=== PATIENT | male | born 1985 | race Caucasian/White ===

== ENCOUNTER 2018-04-16 09:29 | Day surgery (SDC) | payer OTHER, MEDICAID, SELFPAY ==
[2018-04-16] VITALS (9 sets, daily range): BP systolic 104–148; BP diastolic 54–88; PULSE 62–78; RESP 14–16; TEMP 35.7–36.5; O2SAT 95–98; BMI 29.0
--- NOTE | 2018-04-16 | PATH_ITS ---
[facility] Accession Number: [id number] . 01 Material submitted: . PART A: LEFT LATERAL PART B: RIGHT LATERAL PART C: ANTERIOR MIDLINE HEMORRHOID TISSUE PART D: RIGHT POSTERIOR LATERAL . 01 Clinical history: . B: SPECIAL ATTENTION TO JUNCTION BETWEEN MELISSA-ANAL SKIN AND ANUS . 02 Diagnosis: A. 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 Associated internal and external hemorrhoids. . B. Specimen Designated Right Lateral: Anal and rectal tissue with low-grade anal intraepithelial neoplasia (AIN 1) at the anorectal junction. Associated internal and external hemorrhoids, thrombosed. Inked margins negative for significant atypia. . C. Specimen Designated Anterior Midline Hemorrhoidal Tissue: Anal and rectal tissue with internal and external hemorrhoids, negative for atypia. . D. Specimen Designated Right Posterior Lateral: Anorectal tissue with low-grade anal intraepithelial neoplasia (AIN 1) with associated internal and external hemorrhoids. AIN atypia focally extends to some edges of the tissue fragments. MR/04/20/2018 . 02 Electronically signed: . Fabian Chavez MD, Pathologist NPI- [id number] . 01 Gross description: . A. The specimen is received in a container of formalin, labeled with the patient's name, designated left lateral, short stitch pigmented lesion, long stitch verrucous lesion. The specimen consists of a piece of sutherland-rdz to pink-rdz anal rectal tissue measuring 3 x 2 x 1.2 cm. A short stitch designates the pigmented lesion. This involves the anal epithelial tissue. This area appears to extend possibly to the surgical margin. The anal tissue adjacent to this area has a dark purple appearance suggestive of congestion. The long suture has a 0.8 x 0.5 x 0.1 cm, slightly raised, pale white, granular lesion. This area is near the dentate line adjacent to the anorectal mucosa. The margins are painted with blue ink. The verruca lesion is approximately 1.3 cm away from the pigmented lesion. Underlying blood vessels are slightly dilated and filled with bloody fluid. The specimen is entirely submitted as: Cassette A1 - pigmented lesion; cassettes A2-A4 - verruca lesion; cassette A5, A6, A7 - remainder of anorectal tissue. B. The specimen is received in a container of formalin, labeled with the patient's name, designated right lateral, special attention to junction between perianal skin and anus. The specimen consists of two pieces of tissue. The first is a 3.1 x 2 x 0.6 cm, sutherland-rdz strip of anorectal tissue at the junction of the dentate line. The anal tissue has a slightly granular appearance. The surrounding rectal mucosa is smooth, rdz. There is no orientation of the specimen. The margins are painted with black ink. The area of granulation at the dentate line measures 1 cm by approximately 0.3 cm and is slightly raised. The second piece of tissue consists of a 1.3 x 0.5 x 0.3 cm, sutherland-rdz piece of anal tissue. Near one end, there is a 0.4 x 0.4 cm by less than 0.1 cm, raised, pale white lesion. The margins are painted with blue ink. The specimen is serially sectioned through the short axis and entirely submitted with the remaining tissue as cassettes B1-B4 - all of larger piece; cassette B5 - all of smaller piece. C. The specimen is received in a container of formalin, labeled with the patient's name, designated anterior midline hemorrhoid. The specimen consists of a non-oriented piece of anorectal tissue measuring 2 x 1.6 x 0.7 cm. The anal tissue is focally fragmented and has a slightly raised, slightly granular appearance. What appear to be the margins are painted with black ink. The underlying blood vessels are slightly dilated. The specimen is entirely submitted in cassettes C1 and C2. D. The specimen is received in a container of formalin, labeled with the patient's name, designated right posterior lateral. The specimen consists of two pieces of tissue. The first is a 0.5 x 0.4 x 0.2 cm, pink-rdz, polypoid piece of rectal mucosa. The second is a 0.8 x 0.7 x 0.3 cm, sutherland-rdz, strip of anorectal tissue. No epithelial mucosa lesions are grossly noted. The larger piece is trisected. The smaller piece is bisected. Entirely submitted in cassette D1. ([id number]) /FRR . 02 Pathologist provided ICD-10: K62.82 . 02 CPT . 544180, 556897, 510235, 892000 Performed at: 01 [facility] [address] [place] [address], [place], [place] [id number] MD Noe Artis MD Phone: [phone] Performed at: 02 [facility] [address] [place], [place] [id number] MD Miguel Angel Dove MD Phone: [phone]
[2018-04-16] MEDS: LACTATED RINGERS 1,000 ML 200 ML IV (10:11)
--- NOTE | 2018-04-16 11:54 | PM.PREOP ---
Pre-operative Note Interval Note Pre-op Check: History & Physical Reviewed by Physician and Exam Performed H&P completed within 30 days and has changed as indicated here:: Little more irritation. Mineral oil has caused him to have loose stool
[2018-04-16] MEDS: LIDOCAINE 1% W/EPI INJ 1 ML SUBCUT (12:52)
[2018-04-16] MEDS: DIBUCAINE 1% OINT 28 GM 1 APPLIC TOP (13:01)
[2018-04-16] MEDS: HYDROMORPHONE 0.5 MG INJ IV ×4 (13:30→13:56)
--- NOTE | 2018-04-16 13:56 | PM.OP.1 ---
Operative Date/Time/Diagnoses - Date of procedure: 04/16/18 Time of procedure: 13:15 Pre-op diagnosis: Internal external hemorrhoids with bleeding and prolapse Post-op diagnosis: same (Verrucus like lesions on some of the hemorrhoids) Procedure & Clinicians Procedure: Four column hemorrhoidectomy Same procedure as scheduled: Yes Indications: Symptomatic hemorrhoids with prolapse and bleeding (grade 3) Surgeon: Nasim Sierra Click Yes if Unassisted: Yes Anesthesia Type: General Operative Notes Findings: Two large into smaller columns of hemorrhoids. There were verrucous lesions at the edge of the anoderm. SCIP protocol was followed Closure Type: primary Specimen(s): other Estimated Blood Loss (mL): 150 Procedure in detail: Patient was placed prone on the operating room table and taped apart. He was prepped and draped in the usual fashion. He had large visible hemorrhoids. Digital exam was unremarkable. [place] anoscope was inserted and circumferential exam performed. Patient was noted to have a rectus lesions at the edge of his anoderm on some hemorrhoids. The 2 largest columns were left and right lateral. Two smaller columns were anterior midline and right posterior lateral. All these were handled in similar fashion. The suture was placed at the head of the column of the hemorrhoid of 2 0 chromic. The anoderm was incised and the hemorrhoid was lifted off the underlying sphincter. The hemorrhoid was excised. The defect created was closed with a running 2 0 chromic. All 4 hemorrhoids were handled the same. Only the right posterior lateral had no extensive external component. All were submitted. The left lateral hemorrhoid had some dark pigmented lesions located on the skin of the anoderm and these were marked for the pathologist at completion hemostasis was complete. Dibucaine on Gel-Foam was inserted into the anal verge. Dressing was applied and the patient was taken to the recovery area in good condition. Complications: none Condition: stable Disposition: PACU Plan for aftercare: Follow-up in the office.
[2018-04-16] MEDS: HYDROMORPHONE 2 MG TABLET PO (14:00)
== END 2018-04-16 14:40 | disposition home or self-care (01) ==
PROVIDERS: Visit Provider Specialist
PROC: (CPT 46260; principal; 2018-04-16 11:15)
DX: K62.82 Dysplasia of anus (principal); K64.8 Other hemorrhoids; F17.210 Nicotine dependence, cigarettes, uncomplicated
CPT/HCPCS: 46260; 88305; J0330; J1100; J1170; J2250; J2405; J2704; J3010

== ENCOUNTER 2018-04-30 07:53 | Emergency (ER) | payer OTHER, MEDICAID, SELFPAY ==
[2018-04-30 08:09] VITALS: BP 137/91; PULSE 75; RESP 18; TEMP 36.8; O2SAT 100; BMI 29.2
[2018-04-30 08:14] VITALS: BP 137/91; PULSE 76; RESP 18; TEMP 36.8; O2SAT 100
--- NOTE | 2018-04-30 08:39 | ED_ITS ---
HPI - Abdominal Pain General Chief Complaint: Abdominal Pain Stated Complaint: POST OP,DIARRHEA/ABDOMINAL PAIN Time Seen by Provider: 04/30/18 08:21 Source: patient and RN notes reviewed Mode of arrival: ambulatory Limitations: no limitations History of Present Illness HPI narrative: Patient is a 33-year-old male presents with diarrhea and abdominal pain. He has had multiple episodes of diarrhea loose watery nonbloody stools over the last 3 days. The some nausea but no vomiting. He has been drinking Gatorade and water. However just not feeling any better. He says they are doing something with a tap water and he may have eaten something bad. No and else knows is sick. MD complaint: abdominal pain Onset (ago): day(s) (3) Location: LLQ Severity: mild Quality: cramping and aching Related Data Home Medications Medication Instructions Recorded Confirmed acetaminophen [Tylenol Extra 1,000 mg PO Q4HP PRN #0 09/03/17 04/30/18 Strength] cholecalciferol (vitamin D3) 4,000 units PO QDAY #0 09/03/17 04/30/18 [Vitamin D3] [Compound Cream] 1 dose TOPICAL BID 04/16/18 04/30/18 multivitamin 1 tab PO DAILY 04/16/18 04/30/18 lidocaine 1 applic TOPICAL QID 04/30/18 04/30/18 Previous Rx's Medication Instructions Recorded ondansetron [Zofran ODT] 4 mg PO Q6H PRN #10 tab 04/30/18 Allergies Allergy/AdvReac Type Severity Reaction Status Date / Time fluoxetine Allergy Unknown DOESN'T Verified 04/30/18 08:09 TOLERATE MAKES MORE DEPRESSED haloperidol Allergy Unknown Verified 04/30/18 08:09 montelukast Allergy Unknown Verified 04/30/18 08:09 hydrocodone [HYDROCODONE] AdvReac Unknown Verified 04/30/18 08:09 oxycodone [OXYCODONE] AdvReac Unknown Verified 04/30/18 08:09 Review of Systems Review of Systems All systems reviewed & are unremarkable except as noted in HPI and below Constitutional Denies chills, Denies fever(s), Denies lethargy and Denies weakness Cardiovascular Denies chest pain, Denies irregular heart rhythm, Denies lightheadedness, Denies palpitations, Denies dyspnea, Denies dyspnea on exertion and Denies orthopnea Respiratory Denies cough, Denies dyspnea, Denies dyspnea on exertion and Denies wheezing Gastrointestinal Gastrointestinal: Reports as per HPI Musculoskeletal Denies back pain, Denies muscle weakness, Denies numbness and Denies tingling Integumentary/Breasts Denies pruritus, Denies erythema, Denies rash and Denies wounds Neurologic Denies numbness, Denies tingling and Denies weakness Endocrine Denies palpitations Allergic/Immunologic Denies wheezing [facility] Medical History ADHD (Acute) Chronic pain (Acute) DJD (degenerative joint disease) (Acute) Depression (Acute) Drug induced constipation (Acute) 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) Overweight (Acute) Sleep difficulties (Acute) Surgical History H/O hemorrhoidectomy (Acute) H/O inguinal hernia repair (Acute) History of shoulder surgery (Acute) Hx of tonsillectomy (Acute) Social History household members: significant other and other Smoking Status: Current every day smoker Exam Initial Vital Signs Initial Vital Signs: Vital Signs Temperature 98.3 F 04/30/18 08:09 Pulse Rate 75 04/30/18 08:09 Respiratory Rate 18 04/30/18 08:09 Blood Pressure 137/91 H 04/30/18 08:09 Pulse Oximetry 100 04/30/18 08:09 Const General: cooperative and well developed Nutritional Appearance: well nourished Orientation: alert, awake, oriented x3 and not confused Resp Effort & Inspection: normal respiratory effort, able to speak in complete sentences, no respiratory distress and no use of accessory muscles Auscultation: clear to auscultation bilaterally, no rales, no rhonchi and no wheezes Cardio Rate: regular rate Rhythm: regular rhythm Heart Sounds: no click, no gallops, no murmurs and no rubs Pulses: normal peripheral pulses GI Palpation: soft, No guarding and tender (Mild tenderness left lower quadrant) Skin General: no rashes or lesions noted, No jaundice and No petechiae Neuro General: alert, oriented x3, gait normal and no focal motor deficits Speech: speech normal Course Orders Ordered: Discontinued Medications Sodium Chloride (Normal Saline 0.9%) 1,000 mls @ 1,000 mls/hr IV CONT MARYCRUZ Last Infusion: 04/30/18 09:35 Dose: 0 mls/hr Admin: 04/30/18 08:49 Dose: 1,000 mls/hr Ketorolac Tromethamine (Toradol) 30 mg IV NOW ONE Stop: 04/30/18 08:29 Last Admin: 04/30/18 08:50 Dose: 30 mg Ondansetron HCl (Zofran) 4 mg IV NOW ONE Stop: 04/30/18 08:29 Last Admin: 04/30/18 08:50 Dose: 4 mg Vital Signs - 8 hr 04/30/18 08:09 04/30/18 08:14 Temperature 98.3 F 98.3 F Pulse Rate 75 76 Respiratory Rate 18 18 Blood Pressure 137/91 H Blood Pressure [Right Arm] 137/91 H Pulse Oximetry 100 100 MDM - Abdominal Pain Lab Data Result diagrams: 04/30/18 08:42 04/30/18 08:42 Lab Results 04/30/18 04/30/18 Range/Units 08:42 08:42 WBC 13.3 H (4.5-11.0) X10^3/uL RBC 5.26 (4.5-5.9) X10^6/uL Hgb 15.1 (13.5-17.5) g/dL Hct 45.3 (41-53) % MCV 86.2 (80-100) fL MCH 28.7 (26-34) PG MCHC 33.3 (30-36) % RDW 14.3 (11.6-14.8) % Plt Count 384 (150-400) X10^3/uL Neut % (Auto) 81.1 H (50-75) % Lymph % (Auto) 10.9 L (25-40) % Spencer % (Auto) 7.1 (3-14) % Eos % (Auto) 0.6 L (2-4) % Baso % (Auto) 0.3 (0-2) % Neut # (Auto) 00735 H (7209-0289) /uL Sodium 144 (137-145) mmol/L Potassium 4.1 (3.4-5.1) mmol/L Chloride 105 (98-107) mmol/L Carbon Dioxide 26 (22-32) mmol/L BUN 10 (9-20) mg/dL Creatinine 0.70 (0.66-1.25) mg/dL Estimated GFR > 60.0 (>60) mL/min BUN/Creatinine Ratio 14.3 (6-22) Glucose 112 H (70-100) mg/dL Calcium 9.7 (8.4-10.2) mg/dL Total Bilirubin 0.7 (0.2-1.3) mg/dL AST 39 (17-59) IU/L ALT 47 (21-72) IU/L Alkaline Phosphatase 68 (38-126) U/L Total Protein 7.8 (6.3-8.2) g/dL Albumin 4.7 (3.5-5.0) g/dL Globulin 3.1 (1.7-4.1) g/dL Albumin/Globulin Ratio 1.5 (1.0-2.8) Lipase 227 (23-300) U/L MDM Narrative Medical decision making narrative: Tolerating oral fluid no sign of dehydration. He was an apartment building no one else is sick from after they messed with the main water. This is more likely a viral gastroenteritis. Discussed oral rehydration techniques with him. Discharge Plan Departure Patient Disposition: Home, Self-Care Clinical Impression: Gastroenteritis Discharge Date/Time: 04/30/18 10:58 Interventions: ED Discharge Assessment Last Done: 04/30/18 10:58 Instructions: DI for Viral Gastroenteritis -- Adult Activity Restrictions/Additional Instructions: 1) You have been diagnosed with gastroenteritis 2) What to do: Drink frequent but small amounts of fluids. I recommend Gatorade or a Gatorade-like product, as it has small amounts of sugar and salts that improve fluid retention. 3) Take medications as directed-your prescription has been sent to [facility] in [place] at your request 4) Follow up with your primary care provider in 2-3 days 5) Return to ER if you should have any new or worsening symptoms such as, unable to hold down fluids despite use of anti-nausea medications and the small volume oral rehydration strategy, or any worsening abdominal pain Prescriptions: New ondansetron [Zofran ODT] 4 mg tablet,disintegrating 4 mg PO Q6H PRN (Reason: nausea and vomiting) Qty: 10 RF: 0 No Action cholecalciferol (vitamin D3) [Vitamin D3] 1,000 unit Tablet 4,000 units PO QDAY Qty: 0 RF: 0 acetaminophen [Tylenol Extra Strength] 500 MG tablet 1,000 mg PO Q4HP PRN (Reason: Pain, Severe) Qty: 0 RF: 0 lidocaine 5 % ointment 1 applic Topical QID RF: 0 [Compound Cream] 1 dose Topical BID RF: 0 multivitamin Tablet 1 tab PO DAILY RF: 0 Referrals: [Primary Care Provider] -
[2018-04-30 08:48] LABS: Add Manual Diff / Slide Review NO; Basophils Percent Auto 0.3 % (0-2); Eosinophils Percent Auto 0.6 % (2-4); Hematocrit 45.3 % (41-53); Hemoglobin 15.1 g/dL (13.5-17.5); Lymphocytes Percent Auto 10.9 % (25-40); Mean Corpuscular HGB Conc 33.3 % (30-36); Mean Corpuscular Hemoglobin 28.7 PG (26-34); Mean Corpuscular Volume 86.2 fL (80-100); Monocytes Percent Auto 7.1 % (3-14); Neutrophils Absolute Auto 10800 /uL (3000-5900); Neutrophils Percent Auto 81.1 % (50-75); Platelet Count 384 X10^3/uL (150-400); Red Blood Cell Count 5.26 X10^6/uL (4.5-5.9); Red Cell Distribution Width 14.3 % (11.6-14.8); White Blood Cell Count 13.3 X10^3/uL (4.5-11.0)
[2018-04-30] MEDS: SODIUM CHLORIDE 0.9% 1,000 ML 1000 ML IV (08:49)
[2018-04-30] MEDS: KETOROLAC 60 MG/2 ML VIAL 30 MG IV (08:50)
[2018-04-30] MEDS: ONDANSETRON 4 MG/2 ML INJ IV (08:50)
[2018-04-30 08:59] LABS: Alanine Aminotransferase 47 IU/L (21-72); Albumin 4.7 g/dL (3.5-5.0); Albumin Globulin Ratio 1.5 (1.0-2.8); Alkaline Phosphatase 68 U/L (38-126); Aspartate Aminotransferase 39 IU/L (17-59); BUN Creatinine Ratio 14.3 (6-22); Bilirubin Total 0.7 mg/dL (0.2-1.3); Blood Urea Nitrogen 10 mg/dL (9-20); Calcium 9.7 mg/dL (8.4-10.2); Carbon Dioxide 26 mmol/L (22-32); Chloride 105 mmol/L (98-107); Estimated Glomerular Filt Rate > 60.0 mL/min (>60); Globulin 3.1 g/dL (1.7-4.1); Glucose 112 mg/dL (70-100); HEMOLYSIS < 15 (0-50); Lipase 227 U/L (23-300); Potassium 4.1 mmol/L (3.4-5.1); Sodium 144 mmol/L (137-145); Total Protein 7.8 g/dL (6.3-8.2)
[2018-04-30 09:40] VITALS: BP 147/86; PULSE 62; RESP 12; O2SAT 97
[2018-04-30 10:33] VITALS: BP 144/77; PULSE 63; RESP 17; O2SAT 99
== END 2018-04-30 10:58 | disposition home or self-care (01) ==
PROVIDERS: Emergency Provider Emergency Medicine
DX: K52.9 Noninfective gastroenteritis and colitis, unspecified (principal)
CPT/HCPCS: 36591; 80053; 83690; 85025; 96361; 96374; 96375; 99283; 99284; J1885; J2405

== ENCOUNTER → 2018-05-05 13:07 | Outpatient (CLI) | payer SELFPAY | PROVIDERS: Visit Provider Specialist ==

== ENCOUNTER 2023-11-04 07:54 | Emergency (ER) | payer OTHER, MEDICAID, SELFPAY ==
[2023-11-04 08:06] VITALS: BP 164/110; PULSE 98; RESP 18; TEMP 36.8; O2SAT 99; BMI 32.8
--- NOTE | 2023-11-04 08:26 | DI.RAD.S_ITS ---
PROCEDURE: XR LUMBAR SPINE 2-3V INDICATIONS: Fall with midline back pain TECHNIQUE: 2 views of the lumbar spine were acquired. COMPARISON: [facility], CR, L-SPINE 2-3 VIEWS, 02/09/2015, 14:10. [facility], CR, L-SPINE 2-3 VIEWS, 08/29/2014, 14:28. FINDINGS: Bones: 5 [id number] vertebrae are present. There is normal bony alignment. No vertebral body compression fractures. No suspicious bony lesions. Posterior and interbody surgical fusion at L1-2, L5-S1. Interbody fusion at L4-5. Interval removal of the left intrahepatic is screw L4, and stabilization rods. Soft tissues: Overlying bowel gas pattern is normal. No suspicious soft tissue calcifications. IMPRESSION: No acute bony abnormality. Dictated by: Edwin Anne M.D. on 11/04/2023 at 8:50 Approved by: Edwin Anne M.D. on 11/04/2023 at 8:52
--- NOTE | 2023-11-04 08:26 | DI.RAD.S_ITS ---
PROCEDURE: XR SACRUM COCCYX MIN 2V INDICATIONS: Fall with tailbone pain TECHNIQUE: 3 views of the sacrum and coccyx acquired. COMPARISON: None. FINDINGS: Bones: No fractures or dislocations. No suspicious bony lesions. Soft tissues: Visualized bowel gas pattern is normal. No suspicious soft tissue densities. IMPRESSION: No displaced fracture. Dictated by: Edwin Anne M.D. on 11/04/2023 at 8:52 Approved by: Edwin Anne M.D. on 11/04/2023 at 8:53
--- NOTE | 2023-11-04 08:56 | ED.BACK ---
HPI - Back Pain/Injury General Chief Complaint: Back Pain/Injury Stated Complaint: fall, tailbone/lower back pain Time Seen by Provider: 11/04/23 08:25 Source: patient Mode of arrival: Ambulatory Limitations: no limitations History of Present Illness HPI Narrative: Patient is a 38-year-old male. History of spinal fracture/fusions. He states that 2 days ago he stepped back and tripped over his own feet and landed on his buttock/back. Since that time he is had lower back discomfort. He contacted his doctor today who advised that he come to the emergency department for x-rays. He is tramadol/Flexeril and anti-inflammatories at home. No urinary symptoms. No radiation to his legs. Related Data Home Medications Medication Instructions Recorded Confirmed acetaminophen 500 mg tablet 1,000 mg PO Q4HP PRN Pain, Severe 09/03/17 09/16/18 (Tylenol Extra Strength) ##0 cholecalciferol (vitamin D3) 25 4,000 units PO QDAY ##0 09/03/17 09/16/18 mcg (1,000 unit) tablet (Vitamin D3) [Compound Cream] 1 dose topical BID 04/16/18 09/16/18 multivitamin 1 tab PO DAILY 04/16/18 09/16/18 lidocaine 5 % topical ointment 1 applic topical QID 04/30/18 09/16/18 lorazepam 1 mg tablet 1 mg PO BEDTIME PRN 08/06/18 09/16/18 Previous Rx's Medication Instructions Recorded celecoxib 200 mg capsule (Celebrex) 200 mg PO DAILY #30 caps 08/06/18 trazodone 50 mg tablet 100 mg (2 x 50 mg) PO BEDTIME PRN 08/06/18 insomnia #30 tabs Allergies Allergy/AdvReac Type Severity Reaction Status Date / Time fluoxetine Allergy Unknown DOESN'T Verified 11/04/23 08:14 TOLERATE MAKES MORE DEPRESSED haloperidol Allergy Unknown Verified 11/04/23 08:14 montelukast Allergy Unknown Verified 11/04/23 08:14 oxycodone [OXYCODONE] AdvReac Unknown Verified 11/04/23 08:14 Review of Systems Constitutional Constitutional: Reports system reviewed and no additional complaints, except as documented Musculoskeletal Musculoskeletal: Reports system reviewed and no additional complaints, except as documented Integumentary/Breasts Skin/Breast: Reports system reviewed and no additional complaints, except as documented Patient History Medical History (Updated 11/04/23 @ 09:[address] DO) Drug induced constipation Overweight Sleep difficulties Chronic pain Male circumcision DJD (degenerative joint disease) Depression ADHD Fusion of lumbar spine Surgical History H/O hemorrhoidectomy H/O inguinal hernia repair Hx of tonsillectomy History of shoulder surgery Social History household members: significant other and other Smoking Status: Current every day smoker Smoking Status: Current every day smoker tobacco type: cigarettes alcohol intake frequency: 0-2 drinks per day Substance Use Type: marijuana Exam Initial Vital Signs Initial Vital Signs: Vital Signs Temperature 98.3 F 11/04/23 08:06 Pulse Rate 98 H 11/04/23 08:06 Respiratory Rate 18 11/04/23 08:06 Blood Pressure 164/110 H 11/04/23 08:06 Pulse Oximetry 99 11/04/23 08:06 Oxygen Delivery Method Room Air 11/04/23 08:06 HENTN Head: normal to inspection and normocephalic Back/Spine/Pelvis Other: Tenderness to palpation lumbar region and paraspinal region. Skin Other: Surgical incision lumbar spine appears well Extrem Other: No gross deformities Course Orders Ordered: ED Orders 11/04/23 08:26 XR lumbar spine 2-3V Stat XR sacrum coccyx min 2V Stat Vital Signs Vital signs: Vital Signs - 8 hr 11/04/23 08:06 Temperature 98.3 F Pulse Rate 98 H Respiratory Rate 18 Blood Pressure 164/110 H Pulse Oximetry 99 Oxygen Delivery Method Room Air MDM - Back Pain/Injury Imaging Data Sacrum: Radiologist's Impression: PROCEDURE: XR SACRUM COCCYX MIN 2V INDICATIONS: Fall with tailbone pain TECHNIQUE: 3 views of the sacrum and coccyx acquired. COMPARISON: None. FINDINGS: Bones: No fractures or dislocations. No suspicious bony lesions. Soft tissues: Visualized bowel gas pattern is normal. No suspicious soft tissue densities. IMPRESSION: No displaced fracture. Lumbar spine: Radiologist's Impression: PROCEDURE: XR LUMBAR SPINE 2-3V INDICATIONS: Fall with midline back pain TECHNIQUE: 2 views of the lumbar spine were acquired. COMPARISON: [facility], L-SPINE 2-3 VIEWS, 02/09/2015, 14:10. [facility]ed [facility], CR, L-SPINE 2-3 VIEWS, 08/29/2014, 14:28. FINDINGS: Bones: 5 [id number] vertebrae are present. There is normal bony alignment. No vertebral body compression fractures. No suspicious bony lesions. Posterior and interbody surgical fusion at L1-2, L5-S1. Interbody fusion at L4-5. Interval removal of the left intrahepatic is screw L4, and stabilization rods. Soft tissues: Overlying bowel gas pattern is normal. No suspicious soft tissue calcifications. IMPRESSION: No acute bony abnormality. MDM Narrative Medical decision making narrative: X-ray show that the hardware is intact without fracture. Patient has medications at home to help with the discomfort. I suspect that his symptoms will improve with time. Discussed this with him. He was given follow-up instructions Discharge Plan Departure Patient Disposition: Home Clinical Impression: Lower back pain Instructions: DI for Low Back Pain Activity Restrictions/Additional Instructions: The hardware in your lower back is intact without signs of fracture. There were also no fractures noted on the x-rays with the bones. Recommend that you continue to take all of your current medications. Try to stay as active as possible. Contact your primary doctor for follow-up Prescriptions: No Action cholecalciferol (vitamin D3) [Vitamin D3] 25 mcg (1,000 unit) Tablet 4,000 units PO QDAY Qty: 0 Patient Comments: has not been able to take for several days. wants left on profile acetaminophen [Tylenol Extra Strength] 500 MG tablet 1,000 mg PO Q4HP PRN (Reason: Pain, Severe) Qty: 0 lidocaine 5 % ointment 1 applic Topical QID [Compound Cream] 1 dose Topical BID Patient Comments: CBD Tincture multivitamin Tablet 1 tab PO DAILY Patient Comments: has not been able to take for a few days. wants left on profile lorazepam 1 mg tablet 1 mg PO BEDTIME PRN trazodone 50 mg tablet 100 mg PO BEDTIME PRN (Reason: insomnia) Qty: 30 2RF celecoxib [Celebrex] 200 mg capsule 200 mg PO DAILY Qty: 30 2RF Stand Alone Forms: Patient Portal/API
== END 2023-11-04 09:18 | disposition home or self-care (01) ==
PROVIDERS: Emergency Provider Emergency Medicine
DX: M54.50 Low back pain, unspecified (principal); W01.0XXA Fall on same level from slipping, tripping and stumbling without subsequent striking against object, initial encounter
CPT/HCPCS: 72100; 72220; 99283